=== PATIENT | male | born 1950 | race Caucasian/White ===

== ENCOUNTER 2019-08-13 11:17 | Inpatient (IN) | payer OTHER ==
[~2019-08-13] VITALS: Ht 152.4 cm; Wt 26.8 kg
[~2019-08-13 11:17] MED LIST: AGGRENOX 25 MG1 EACH PO; LOSARTAN POTAS100 MG PO; MEDROLDOSEPACK PO; NEXIUM40 MG PO; NORCO 10-325 T1 EACH PO; NORVASC10 MG PO; PERCOCET 10-321 EACH PO; SYMBICORT160 MCG/4. INH; XANAX1 MG PO
[2019-08-13 14:04] LABS: HEMATOCRIT 32.3 % (42.0-52.0); HEMOGLOBIN 10.4 gm/dL (14.0-18.0); MCH 28.4 pg (26.0-34.0); MCHC 32.1 g/dL (28.0-37.0); MCV 88.6 fL (80.0-100.0); RBC 3.65 mil/uL (4.50-6.00); RDW 24.3 % (10.5-14.5); WBC 6.2 thou/uL (4.0-11.0)
[2019-08-13 14:13] LABS: CALCIUM 8.8 mg/dL (8.5-10.1); CREATININE 1.2 mg/dL (0.7-1.3); POTASSIUM 4.8 mmol/L (3.5-5.1)
[2019-08-13 14:24] LABS: ALBUMIN 2.9 g/dL (3.4-5.0); TOTAL BILIRUBIN 0.5 mg/dL (0.2-1.0); TOTAL PROTEIN 7.5 g/dL (6.4-8.2)
[2019-08-13 14:53] LABS: % SATURATION 6 % (20-39); IRON 19 ug/dL (65-175); TIBC 303 ug/dL (250-450)
[2019-08-13 22:48] VITALS: BP 110/49
[2019-08-14] VITALS (45 sets, daily range): BP systolic 99–152; BP diastolic 47–97
[2019-08-14 05:33] LABS: HEMOGLOBIN 8.7 gm/dL (14.0-18.0); MCH 28.5 pg (26.0-34.0); MCV 88.9 fL (80.0-100.0); RBC 3.04 mil/uL (4.50-6.00); RDW 23.9 % (10.5-14.5); WBC 4.5 thou/uL (4.0-11.0)
[2019-08-14 05:47] LABS: CALCIUM 8.2 mg/dL (8.5-10.1); CREATININE 0.9 mg/dL (0.7-1.3); INR 1.3; POTASSIUM 4.6 mmol/L (3.5-5.1); PROTIME 12.9 Seconds (9.3-11.4)
[2019-08-14 08:23] LABS: ALBUMIN 2.2 g/dL (3.4-5.0); SGOT 225 U/L (15-37); SGPT 794 U/L (30-65); TOTAL BILIRUBIN 0.2 mg/dL (0.2-1.0); TOTAL PROTEIN 5.9 g/dL (6.4-8.2)
[2019-08-14 08:24] LABS: DIRECT BILIRUBIN < 0.1 mg/dL (<0.1-0.2)
[2019-08-14 10:07] LABS: HAV IgM AB (ANTI-HAV IgM) Negative (Negative); HEPATITIS B SURFACE AG Negative (Negative); HEPATITIS C VIRUS AB >11.0 (0.0-0.9)
[2019-08-15] VITALS (17 sets, daily range): BP systolic 119–171; BP diastolic 56–94
[2019-08-15 05:46] LABS: HEMATOCRIT 28.1 % (42.0-52.0); HEMOGLOBIN 8.9 gm/dL (14.0-18.0); MCH 28.7 pg (26.0-34.0); MCHC 31.8 g/dL (28.0-37.0); MCV 90.2 fL (80.0-100.0); RBC 3.11 mil/uL (4.50-6.00); RDW 24.4 % (10.5-14.5); WBC 6.1 thou/uL (4.0-11.0)
[2019-08-15 05:59] LABS: CALCIUM 8.7 mg/dL (8.5-10.1); CREATININE 0.8 mg/dL (0.7-1.3)
[2019-08-15 10:04] LABS: ALBUMIN 2.4 g/dL (3.4-5.0); DIRECT BILIRUBIN < 0.1 mg/dL (<0.1-0.2); SGOT 132 U/L (15-37); SGPT 670 U/L (30-65); TOTAL BILIRUBIN 0.2 mg/dL (0.2-1.0); TOTAL PROTEIN 5.5 g/dL (6.4-8.2)
[2019-08-16 03:55] VITALS: BP 127/55
[2019-08-16 07:37] VITALS: BP 145/47
[2019-08-16 09:38] LABS: HEMATOCRIT 32.7 % (42.0-52.0); HEMOGLOBIN 10.3 gm/dL (14.0-18.0); MCHC 31.6 g/dL (28.0-37.0); MCV 88.7 fL (80.0-100.0); RBC 3.68 mil/uL (4.50-6.00); RDW 23.9 % (10.5-14.5); WBC 5.7 thou/uL (4.0-11.0)
[2019-08-16 09:54] LABS: ALBUMIN 2.4 g/dL (3.4-5.0); CALCIUM 8.5 mg/dL (8.5-10.1); CREATININE 0.6 mg/dL (0.7-1.3); MAGNESIUM 1.7 mg/dL (1.8-2.4); POTASSIUM 3.4 mmol/L (3.5-5.1); TOTAL BILIRUBIN 0.5 mg/dL (0.2-1.0); TOTAL PROTEIN 6.2 g/dL (6.4-8.2)
[2019-08-16 10:21] LABS: INR 1.1; PROTIME 11.4 Seconds (9.3-11.4)
[2019-08-16 11:27] VITALS: BP 136/46
[2019-08-16] MEDS ORDERED: LEVAQUIN 750 M750 MG PO (14:22)
[2019-08-16 15:11] VITALS: BP 136/46
== END 2019-08-16 16:44 | disposition home or self-care (01) | DRG 193 ==
LOC: PRE 11:17 → 3W 12:06 → ICU 12:06 → 3W 08-15 16:28
PROVIDERS: Internal Medicine; Internal Medicine Gastroenterology; Nurse Practitioner; ADMIT Hospitalist; ATTEND Hospitalist
DX: J18.9 Pneumonia, unspecified organism (principal); N17.0 Acute kidney failure with tubular necrosis; J96.21 Acute and chronic respiratory failure with hypoxia; J44.0 Chronic obstructive pulmonary disease with (acute) lower respiratory infection; E46 Unspecified protein-calorie malnutrition; Z68.1 Body mass index [BMI] 19.9 or less, adult; I13.0 Hypertensive heart and chronic kidney disease with heart failure and stage 1 through stage 4 chronic kidney disease, or unspecified chronic kidney disease; I73.9 Peripheral vascular disease, unspecified; F41.9 Anxiety disorder, unspecified; G47.00 Insomnia, unspecified; E78.5 Hyperlipidemia, unspecified; F31.9 Bipolar disorder, unspecified; I50.9 Heart failure, unspecified; G89.29 Other chronic pain; N18.9 Chronic kidney disease, unspecified; M06.9 Rheumatoid arthritis, unspecified; F17.210 Nicotine dependence, cigarettes, uncomplicated; K80.20 Calculus of gallbladder without cholecystitis without obstruction; D64.9 Anemia, unspecified; Z20.828 Contact with and (suspected) exposure to other viral communicable diseases; F03.90 Unspecified dementia, unspecified severity, without behavioral disturbance, psychotic disturbance, mood disturbance, and anxiety; Z79.82 Long term (current) use of aspirin; Z79.899 Other long term (current) drug therapy; Z87.11 Personal history of peptic ulcer disease; Z86.19 Personal history of other infectious and parasitic diseases
CPT/HCPCS: 10078; 10203; 10879